=== PATIENT | female | born 1940 | race Caucasian/White ===

== ENCOUNTER 2017-10-13 13:06 | Inpatient (IN) | END 2017-10-16 16:50 | disposition home health service (06) | DRG 433 ==

== ENCOUNTER 2018-07-29 11:15 | Emergency (ER) | payer OTHER ==
[~2018-07-29] VITALS: Ht 152.4 cm; Wt 65.0 kg
[~2018-07-29 11:15] MED LIST: ALEN70TA5 PO; CIPR500T4 PO; FOLI-49 PO; FURO-110 PO; GABA100C14 PO; LACT20SO2 PO; MAGN400T27 PO; PANT40TA3 PO; SOLI5TAB2 PO; SPIR50TA PO; TRAM50TA2 PO
[2018-07-29 11:19] VITALS: Ht 152.4 cm; Wt 65.0 kg
--- NOTE | 2018-07-29 12:32 | ERD ---
ER Documentation Chief Complaint Chief Complaint RIGHT ARM AND SHOULDER PAIN/INJURY, MECHANICAL FALL 5 DAYS AGO HPI 77-year-old female, with history of hypertension, presents to the emergency department, complaining of persistent right shoulder pain after sustaining a mechanical fall 5 days ago. The patient is complaining of dull pain, 7/10, associated with decreased range of motion. The patient has been taking Tylenol with very modest improvement of the pain. She denies distal weakness, numbness or tingling. No head trauma, no loss of consciousness. ROS All systems reviewed and are negative except as per history of present illness. Medications Home Meds Active Scripts Ibuprofen* (Motrin*) 400 Mg Tab, 400 MG PO Q8, #20 TAB Prov:ROSANA ASIF MD 07/29/18 Hydrocodone/Acetaminophen (Sturtevant 5-325 Tablet) 1 Each Tablet, 1 TAB PO Q6H PRN for PAIN, #7 TAB Prov:ROSANA ASIF MD 07/29/18 Tramadol HCl (Tramadol HCl) 50 Mg Tablet, 50 MG PO Q6H PRN for PAIN, #40 TAB Prov:ISADORA WATERMAN 10/16/17 Ciprofloxacin Hcl* (Ciprofloxacin Hcl*) 500 Mg Tablet, 500 MG PO BID for 5 Days, #10 TAB Prov:ISADORA WATERMAN 10/16/17 Furosemide* (Lasix*) 20 Mg Tablet, 20 MG PO DAILY, #60 TAB 0 Refills Prov:ISADORA WATERMAN 10/16/17 Lactulose* (Lactulose*) 20 Gm/30 Ml Solution, 20 GM PO BID, #90 BOTTLE Prov:ISADORA WATERMAN 10/16/17 Magnesium Oxide* (Mag-Oxide*) 400 Mg Tablet, 400 MG PO BID, #60 TAB 1 Refill Prov:ISADORA WATERMAN 10/16/17 Reported Medications Solifenacin* (Vesicare*) 5 Mg Tablet, 5 MG PO QHS, TAB 10/12/17 Pantoprazole* (Protonix*) 40 Mg Tablet.dr, 40 MG PO QAM, TAB 10/12/17 Alendronate Sodium* (Fosamax*) 70 Mg Tablet, 70 MG PO Q7D, #4 TAB 10/12/17 Gabapentin* (Gabapentin*) 100 Mg Capsule, 100 MG PO BID, #90 CAP TAKE 1 CAP-QAM AND 3CAP-QHS 10/12/17 Spironolactone* (Aldactone*) 50 Mg Tablet, 50 MG PO DAILY, #30 TAB 10/12/17 Folic Acid* (Folic Acid*) 1 Mg Tablet, 1 MG PO DAILY, TAB 10/12/17 Allergies Allergies: Coded Allergies: No Known Allergy (Unverified , 10/12/17) PMhx/Soc Medical and Surgical Hx: pt denies Surgical Hx Anesthesia Reaction: No Hx Neurological Disorder: No Hx Respiratory Disorders: No Hx Cardiac Disorders: No Hx Psychiatric Problems: Yes (H/O DEPRESSION) Hx Miscellaneous Medical Probl: Yes (DM) Hx Alcohol Use: No Hx Substance Use: No Hx Tobacco Use: No Smoking Status: Never smoker FmHx Family History: No diabetes, No coronary disease Physical Exam Vitals Vital Signs Date Temp Pulse Resp B/P (MAP) Pulse Ox O2 O2 Flow FiO2 Time Delivery Rate 07/29/18 97.7 92 18 112/55 94 Room Air 14:05 (74) 07/29/18 97.3 90 19 144/60 100 11:19 (88) Physical Exam Const: No acute distress Head: Atraumatic Eyes: Normal Conjunctiva ENT: Normal External Ears, Nose and Mouth. Neck: Full range of motion. No meningismus. Resp: Clear to auscultation bilaterally Cardio: Regular rate and rhythm, no murmurs Abd: Soft, non tender, non distended. Normal bowel sounds Skin: No petechiae or rashes Back: No midline or flank tenderness Ext: Right shoulder: With significant edema and ecchymosis, decreased range of motion due to pain. Distal capillary refill less than 3 seconds. Neur: Awake and alert Psych: Normal Mood and Affect Results 24 hrs Current Medications Medications Dose Sig/Santa Start Time Status Last (Trade) Ordered Route PRN Stop Time Admin Dose Reason Admin 1 tab ONCE ONCE 07/29/18 DC 07/29/18 Acetaminophen PO 13:00 12:42 / 07/29/18 13:01 Hydrocodone Bitart (Sturtevant (5/325)) Ibuprofen 400 mg ONCE ONCE 07/29/18 DC 07/29/18 (Motrin) PO 13:00 12:43 07/29/18 13:01 DIAGNOSTIC IMAGING REPORT Patient: MARAH GARRETT : 1940 Age: 77 Sex: F MR #: [id number] DOS: 07/29/18 1229 Ordering MD: ROSANA ASIF MD Location: [facility] Room/Bed: PROCEDURE: XR right clavicle CLINICAL INDICATION: Fall, right clavicle pain TECHNIQUE: 2 images of the right clavicle COMPARISON: DR SAMPSON 10/12/2017 FINDINGS: There is an acute comminuted surgical neck fracture of the proximal humerus with significant apex anteromedial angulation and up to 2 cm of cortical offset. A large greater tuberosity fragment appears to be a posteriorly displaced and rotated bordering the humeral head. The humeral head itself does not appear to be dislocated. No additional fractures are identified. There is background TPA. Soft tissues are grossly unremarkable. IMPRESSION: 1. Acute comminuted significantly displaced and angulated humeral neck fracture as above noting a large greater tuberosity fracture fragment is posteriorly displaced alongside the humeral head. No definite humeral head dislocation though the humeral head is somewhat rotated. Consider CT for more complete evaluation. RPTAT: UU .Keshav Dsouza MD, MD Date Time Electronically viewed and signed by .Keshav Dsouza MD, MD on 07/29/2018 13:12 .K/ CC: ROSANA ASIF MD [id number] Procedures/MDM Differential diagnosis considered include but not limited are: sprain/strain, ligament injury, fracture, dislocation, low suspicion for acute infectious process. Soft compartments, neurovascular exam grossly intact. Physical examination and clinical presentation consistent with right humeral neck fracture. The injury occurred 5 days ago, despite that there is a evident dislocation on the x-rays, the patient does not display neurovascular damage, therefore, at this time, we will proceed with conservative management and follow-up with her doctor for an orthopedic referral as soon as possible. During the ED course the patient received treatment with arm sling presenting overall improvement of the symptoms. Splint evaluation: Type: Arm sling Location: Right upper extremity Position: good alignment in anatomical position Neurovascular intact Results and clinical impression discussed with the patient and family who agrees with management. The patient is stable to be treated outpatient and will be discharged home with recommendations for Ortho evaluation LUCIEN, meanwhile, ice, rest and partial immobilization. NSAIDs 3 times daily for 5 days and close monitoring. The patient was instructed to follow up with the primary care provider in the next 48h. If symptoms persist, worsen or new symptoms develop, then patient should return to the ED immediately. Instructions explained and given to patient with acknowledgment and demonstrated understanding. Disclaimer: Inadvertent spelling and grammatical errors are likely due to EHR/dictation software use and do not reflect on the overall quality of patient care. Also, please note that the electronic time recorded on this note does not necessarily reflect the actual time of the patient encounter. Departure Diagnosis: Primary Impression: Injury of right shoulder and upper arm Additional Impression: Fracture of neck of right humerus Condition: Stable Additional Instructions: Muchas xiomara por [facility] para gogn servicio. Esperamos que en gong visita a la boy de emergencia gong problema medico haya sido solucionado y que se sienta mucho mejor. Para estar seguros que gong mejoria sigue en proceso, le pedimos el favor de hacer heather willi de seguimiento medico con gong doctor primario en los proximos 2-4 menjivar. Lleve con usted estos documentos y las medicinas recetadas. Si dannie sintomas empeoran, NO SE ESPERE, por favor regrese a boy de emergencia INMEDIATAMENTE. En heidi que usted no tenga un mdico de atencin primaria: Llame al mdico o clnica comunitaria de referencia que aparece abajo keren las horas de consultorio para hacer heather willi para que le vean. CLINICAS: [facility] [phone] [phone] [facility] [phone] [facility] [phone] [facility] [phone] [facility] [phone] ROSANA DU MD Jul 29, 2018 12:32
[2018-07-29] MEDS ORDERED: HYDROCODONE/APAP (5/325) TAB PO ONE (13:00)
[2018-07-29] MEDS ORDERED: IBUPROFEN 200 MG TAB PO ONE (13:00)
[2018-07-29] MEDS ORDERED: IBUP-1561 PO (13:50)
[2018-07-29] MEDS ORDERED: HYDR-4011 PO (13:50)
[2018-07-29 14:05] VITALS: BP 112/55; PULSE 92; RESP 18
[2018-08-13] MEDS ORDERED: PANT20TA3 PO (11:51)
[2018-08-13] MEDS ORDERED: NEO500 PO (11:51)
[2018-08-13] MEDS ORDERED: GABA100C14 PO (11:53)
[2018-08-24] MEDS ORDERED: LACT20SO2 PO (16:35)
[2018-08-24] MEDS ORDERED: PANT40TA4 PO (16:35)
== END 2018-07-29 14:05 | disposition home or self-care (01) ==
LOC: FTE 11:15
DX: S42.351A Displaced comminuted fracture of shaft of humerus, right arm, initial encounter for closed fracture (principal); S12.9XXA Fracture of neck, unspecified, initial encounter; I10 Essential (primary) hypertension; W18.39XA Other fall on same level, initial encounter; Y92.9 Unspecified place or not applicable
CPT/HCPCS: 73000